=== PATIENT | female | born 1970 | race Caucasian/White ===

== ENCOUNTER 2016-11-30 12:02 | Emergency (ER) | payer SELFPAY ==
[~2016-11-30] VITALS: Ht 152.4 cm; Wt 62.0 kg
[~2016-11-30 12:02] MED LIST: CHLO.12%30 SSP; CLIN1CAP6 PO; IBUP800T23 PO
[2016-11-30 12:04] VITALS: BP 166/77; PULSE 77; RESP 17; TEMP 98.1; O2SAT 98
[2016-11-30] MEDS ORDERED: KETOROLAC TROMETHAMINE 60 MG/2 ML (IM) VIAL IM ONE (13:45)
--- NOTE | 2016-11-30 13:46 | PD ---
HPI Chief Complaint: Pain: Acute or Chronic Time Seen by Provider: 13:42 Travel History International Travel<30 days: No Contact w/Intl Traveler<30days: No Traveled to known affect area: No History of Present Illness HPI 46-year-old female presents to the emergency department for evaluation of left shoulder pain for 4 months. Denies any injury or trauma to her shoulder. States that she woke up one day and had pain in her shoulder and it has been gradually worsening over the past 4 months. Describes it as a sharp pain in her shoulder that is aggravated with any lifting or movement of the shoulder. Pain is alleviated with sitting still. Denies any previous injury or trauma to the shoulder. Denies any fever, chills, nausea, vomiting, numbness or tingling , weakness, neck pain, chest pain, shortness of breath. She has been taking Tylenol with minimal improvement of symptoms. The patient states that she just moved here from [place] and [facility] and does not have a PCP. No other complaints. PFSH Past Medical History Hx Anticoagulant Therapy: No Cardiovascular Problems: No Chemotherapy: No Cerebrovascular Accident: No Diabetes: No Respiratory: No ?: Not Past Surgical History Hysterectomy: Yes Social History Alcohol Use: No Tobacco Use: No Substance Use: No Allergies-Medications (Allergen,Severity, Reaction): Coded Allergies: No Known Allergies (Unverified , 11/30/16) Reported Meds & Prescriptions Reported Meds & Active Scripts Active No Active Prescriptions or Reported Medications Review of Systems Except as stated in HPI: all other systems reviewed are Neg Physical Exam Narrative GENERAL: Well-nourished and well-developed pleasant female patient in no acute distress who is nontoxic appearing. SKIN: Warm and dry. HEAD: Normocephalic and atraumatic. EYES: No injection, drainage, or hyphema noted. PERRLA. EOMI. ENT: No nasal drainage noted. Oropharynx is clear. NECK: Supple and the trachea is midline. No midline tenderness to palpation of the cervical spine. No tenderness to palpation of trapezius muscles. CARDIOVASCULAR: Regular rate and rhythm. RESPIRATORY: Breath sounds are equal bilaterally with no accessory muscle use, wheezing, rhonchi, or crackles. MUSCULOSKELETAL: Tenderness to palpation of left anterior shoulder with decreased range of motion, patient resists lifting shoulder above about 40 due to pain. No obvious deformities, swelling, cyanosis, or ecchymosis is present throughout the upper and lower extremities. Patient has full range of motion in all other extremities without any signs of neurovascular compromise. Radial pulses are 2+ bilaterally. BACK: Nontender without any obvious deformities, bony point tenderness, or crepitus noted throughout the thoracic and lumbar vertebrae. NEUROLOGICAL: Awake, alert, and oriented. Normal speech and gait. Cranial nerves are grossly intact. Data Data Last Documented VS Vital Signs Date Time Temp Pulse Resp B/P Pulse Ox O2 Delivery O2 Flow Rate FiO2 11/30/16 12:04 98.1 77 17 166/77 98 Orders Ketorolac Inj (Toradol Inj) (11/30/16 13:45) Shoulder, Complete (>2vws) (11/30/16 13:41) MDM Medical Decision Making Medical Screen Exam Complete: Yes Emergency Medical Condition: Yes Differential Diagnosis Shoulder strain versus ligamentous injury versus contusion Narrative Course 46-year-old female presents to the emergency department for evaluation of left shoulder pain for 4 months. Patient is afebrile, vital signs are stable. No injury or trauma to her shoulder. No obvious bony abnormality. The patient's left upper extremity is neurovascularly intact. X-ray imaging has been ordered and is pending. Patient is given Toradol 60 mg IM. X-ray of the left shoulder is negative for any acute abnormalities. Discussed results with the patient. We'll prescribe her NSAIDs and muscle relaxers. Advised to follow-up with her PCP or an orthopedist if her symptoms persist. Diagnosis Primary Impression: Left shoulder pain Qualified Code: M25.512 - Left shoulder pain, unspecified chronicity Referrals: Orthopedist Primary Care Physician Patient Instructions: General Instructions, Shoulder Pain (ED) Additional Instructions: Apply ice or heat to help alleviate symptoms. Apply topical analgesics such as BenGay or icy hot. Take medications as prescribed with food and a full glass of water. Do not take Robaxin with alcohol or while driving. Follow-up with your Primary Care Physician or an orthopedist if your symptoms persist. Return to the ED for any acute worsening of symptoms. Med/Other Pt SpecificInfo: Prescription(s) given Scripts Methocarbamol (Robaxin)750 Mg [id number] Mg PO TID 7 Days Ref 0 Prov:Tyron Polanco MD 11/30/16 Naproxen 500 Mg [id number] Mg PO BID 7 Days Ref 0 Prov:Tyron Polanco MD 11/30/16 Disposition: 01 DISCHARGE HOME Condition: Stable Marta Hope Nov 30, 2016 13:46
--- NOTE | 2016-11-30 14:08 | RADRPT ---
EXAM DATE/TIME: 11/30/2016 13:57 [facility] COMPARISON: No previous studies available for comparison. INDICATIONS : Worsening Generalized Left Shoulder Pain, No Known Trauma. MEDICAL HISTORY : None. SURGICAL HISTORY : None. ENCOUNTER: Initial ACUITY: 4 - 6 months PAIN SCORE: 10/10 LOCATION: Left Shoulder. FINDINGS: Multiple view examination of the left shoulder demonstrates no evidence of fracture or dislocation. The glenohumeral and acromioclavicular joints are maintained. There is normal range of motion betwee n internal and external rotation. Bony mineralization is normal. CONCLUSION: Unremarkable examination of the left shoulder. Anthony Marks MD on November 30, 2016 at 14:07 Board Certified Radiologist. This report was verified electronically.
[2016-11-30] MEDS ORDERED: ROBA750T PO (14:14)
[2016-11-30] MEDS ORDERED: NAPR500T PO (14:14)
== END 2016-11-30 14:23 | disposition home or self-care (01) ==
LOC: NEPB 12:02
DX: M25.512 Pain in left shoulder (principal)
CPT/HCPCS: 73030; 96372; 99283; J1885